=== PATIENT | female | born 1955 ===

== ENCOUNTER 2018-10-18 02:15 | Outpatient (CLI) | payer MEDICARE, MEDICAID | END 2018-10-18 23:59 | disposition home or self-care (01) | LOC: DIABETIC 02:15 | PROVIDERS: ATTEND Family Medicine | DX: E11.65 Type 2 diabetes mellitus with hyperglycemia (principal); Z79.4 Long term (current) use of insulin; Z79.899 Other long term (current) drug therapy; Z88.0 Allergy status to penicillin; Z88.1 Allergy status to other antibiotic agents; Z88.2 Allergy status to sulfonamides; Z88.8 Allergy status to other drugs, medicaments and biological substances; Z88.5 Allergy status to narcotic agent; Z91.040 Latex allergy status; Z91.09 Other allergy status, other than to drugs and biological substances; Z91.041 Radiographic dye allergy status | CPT/HCPCS: G0108 ==

== ENCOUNTER 2019-01-25 03:30 | Outpatient (CLI) | payer MEDICARE, MEDICAID | END 2019-01-25 23:59 | disposition home or self-care (01) | LOC: DIABETIC 03:30 | PROVIDERS: ATTEND Family Medicine | DX: E11.65 Type 2 diabetes mellitus with hyperglycemia (principal); Z79.4 Long term (current) use of insulin; Z79.899 Other long term (current) drug therapy; Z88.0 Allergy status to penicillin; Z88.1 Allergy status to other antibiotic agents; Z88.2 Allergy status to sulfonamides; Z88.8 Allergy status to other drugs, medicaments and biological substances; Z91.040 Latex allergy status; Z91.048 Other nonmedicinal substance allergy status | CPT/HCPCS: G0108 ==

== ENCOUNTER 2019-02-06 04:12 | Outpatient (CLI) | payer MEDICARE, MEDICAID | END 2019-02-06 23:59 | disposition home or self-care (01) | LOC: DIABETIC 04:12 | PROVIDERS: ATTEND Family Medicine | DX: E11.65 Type 2 diabetes mellitus with hyperglycemia (principal); Z88.0 Allergy status to penicillin; Z88.2 Allergy status to sulfonamides; Z88.8 Allergy status to other drugs, medicaments and biological substances; Z91.040 Latex allergy status; Z79.84 Long term (current) use of oral hypoglycemic drugs | CPT/HCPCS: G0108 ==